=== PATIENT | female | born 2000 | race Caucasian/White ===

== ENCOUNTER 2019-06-17 19:07 | Emergency (ER) | payer BC ==
[~2019-06-17] VITALS: Ht 167.6 cm; Wt 113.4 kg
[2019-06-17] MEDS ORDERED: HYDROCODON-ACE1 EAC8 PO (19:56)
[2019-06-17] MEDS ORDERED: MOTION RELIEF25 MG PO (19:56)
[2019-06-17] MEDS ORDERED: ZOFRAN ODT4 MG PO (19:56)
[2019-06-17] MEDS ORDERED: AMOXICILLIN875 MG PO (19:56)
[2019-06-17] MEDS ORDERED: MEDROLDOSEPACK PO (19:56)
[2019-06-17 20:26] VITALS: BP 126/98
== END 2019-06-17 20:26 | disposition home or self-care (01) ==
LOC: M.ERS 19:07
DX: H92.01 Otalgia, right ear (principal); Z88.6 Allergy status to analgesic agent; Z88.1 Allergy status to other antibiotic agents; Z88.8 Allergy status to other drugs, medicaments and biological substances; Z90.49 Acquired absence of other specified parts of digestive tract

== ENCOUNTER 2019-07-14 20:31 | Emergency (ER) | payer BC ==
[~2019-07-14] VITALS: Ht 167.6 cm; Wt 113.4 kg
[~2019-07-14 20:31] MED LIST: AMOXICILLIN875 MG PO; HYDROCODON-ACE1 EAC8 PO; MEDROLDOSEPACK PO; MOTION RELIEF25 MG PO; ZOFRAN ODT4 MG PO
[2019-07-14] MEDS ORDERED: Magic Mouthwash SWISH&SPIT (23:01)
[2019-07-14 23:13] VITALS: BP 122/70
== END 2019-07-14 23:15 | disposition home or self-care (01) ==
LOC: M.ERS 20:31
DX: J06.9 Acute upper respiratory infection, unspecified (principal); Z88.1 Allergy status to other antibiotic agents; Z88.8 Allergy status to other drugs, medicaments and biological substances; Z90.49 Acquired absence of other specified parts of digestive tract

== ENCOUNTER 2020-02-26 01:19 | Emergency (ER) | payer OTHER ==
[~2020-02-26] VITALS: Ht 167.6 cm; Wt 113.4 kg
[~2020-02-26 01:19] MED LIST changes: +Magic Mouthwash SWISH&SPIT
[2020-02-26 01:21] VITALS: BP 137/96
[2020-02-26] MEDS ORDERED: HYDROXYZINE PAM25 M1 PO (01:26)
[2020-02-26] MEDS ORDERED: ENBRACE HR SOF1 EACH PO (01:27)
[2020-02-26] MEDS ORDERED: METFORMIN HCL500 M3 PO (01:27)
[2020-02-26] MEDS ORDERED: VITAMIN C500 M1 PO (01:27)
[2020-02-26] MEDS ORDERED: B12 ACTIVE1000 MCG PO (01:27)
--- NOTE | 2020-02-27 11:04 | EKG ---
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
== END 2020-02-26 02:07 | disposition home or self-care (01) ==
LOC: M.ERS 01:19
DX: F41.0 Panic disorder [episodic paroxysmal anxiety] (principal); F41.9 Anxiety disorder, unspecified; Z90.49 Acquired absence of other specified parts of digestive tract; Z88.1 Allergy status to other antibiotic agents; Z88.8 Allergy status to other drugs, medicaments and biological substances

== ENCOUNTER 2020-08-25 18:45 | Emergency (ER) | payer OTHER ==
[~2020-08-25] VITALS: Ht 167.6 cm; Wt 96.2 kg
[~2020-08-25 18:45] MED LIST changes: +B12 ACTIVE1000 MCG PO; +ENBRACE HR SOF1 EACH PO; +HYDROXYZINE PAM25 M1 PO; +METFORMIN HCL1000 M2 PO; +VITAMIN C500 M1 PO
[2020-08-25] MEDS ORDERED: LEXAPRO20 MG PO (19:11)
[2020-08-25 19:59] LABS: HEMATOCRIT 40.7 % (37.0-47.0); HEMOGLOBIN 13.7 gm/dL (12.0-15.0); MCH 28.3 pg (26.0-34.0); MCHC 33.6 g/dL (28.0-37.0); MCV 84.2 fL (80.0-100.0); MPV 6.8 fl. (7.2-11.1); RBC 4.84 mil/uL (4.20-5.00); RDW-CV 13.2 % (10.5-14.5); WBC 9.6 thou/uL (4.0-11.0)
[2020-08-25 20:10] LABS: CALCIUM 9.6 mg/dL (8.5-10.1); CREATININE 0.8 mg/dL (0.6-1.3)
[2020-08-25 20:15] LABS: ALBUMIN 3.8 g/dL (3.4-5.0); TOTAL PROTEIN 7.8 g/dL (6.4-8.2)
[2020-08-25 20:35] LABS: URINE BILIRUBIN NEGATIVE (Negative); URINE BLOOD NEGATIVE (Negative); URINE CLARITY CLEAR; URINE COLOR YELLOW; URINE GLUCOSE-RANDOM NEGATIVE (Negative); URINE KETONES NEGATIVE (Negative); URINE LEUKOCYTES-REFLEX NEGATIVE (Negative); URINE NITRITE-REFLEX NEGATIVE (Negative); URINE PROTEIN NEGATIVE (Negative); URINE UROBILINOGEN 0.2 E.U./dl (0.2-1.0)
[2020-08-25] MEDS ORDERED: ZOFRAN ODT4 MG PO (20:56)
[2020-08-25 21:10] VITALS: BP 151/71
== END 2020-08-25 21:11 | disposition home or self-care (01) ==
LOC: M.ERS 18:45
PROVIDERS: Personal Emergency Response Attendant
DX: A08.4 Viral intestinal infection, unspecified (principal); Z20.828 Contact with and (suspected) exposure to other viral communicable diseases; J45.909 Unspecified asthma, uncomplicated; Z88.1 Allergy status to other antibiotic agents; Z88.8 Allergy status to other drugs, medicaments and biological substances; Z90.49 Acquired absence of other specified parts of digestive tract; Z79.899 Other long term (current) drug therapy

== ENCOUNTER 2021-02-18 15:09 | Emergency (ER) | payer OTHER ==
[~2021-02-18] VITALS: Ht 167.6 cm; Wt 111.1 kg
[~2021-02-18 15:09] MED LIST changes: +LEXAPRO20 MG PO
[2021-02-18] MEDS ORDERED: LORATIDINE 10 M10 M1 PO (15:29)
[2021-02-18] MEDS ORDERED: NAPROSYN500 MG PO (16:46)
[2021-02-18 17:00] VITALS: BP 122/68
== END 2021-02-18 17:01 | disposition home or self-care (01) ==
LOC: M.ERS 15:09
DX: S83.8X2A Sprain of other specified parts of left knee, initial encounter (principal); J45.909 Unspecified asthma, uncomplicated; K58.9 Irritable bowel syndrome, unspecified; Z90.49 Acquired absence of other specified parts of digestive tract; Z88.6 Allergy status to analgesic agent; Z88.1 Allergy status to other antibiotic agents; Z88.8 Allergy status to other drugs, medicaments and biological substances; W22.8XXA Striking against or struck by other objects, initial encounter; Y93.89 Activity, other specified; Y92.89 Other specified places as the place of occurrence of the external cause; Y99.8 Other external cause status

== ENCOUNTER 2021-07-31 15:41 | Emergency (ER) | payer OTHER ==
[~2021-07-31] VITALS: Ht 165.1 cm; Wt 111.1 kg
[~2021-07-31 15:41] MED LIST changes: +LORATIDINE 10 M10 M1 PO; +NAPROSYN500 MG PO
[2021-07-31 16:02] VITALS: BP 146/88
[2021-07-31] MEDS ORDERED: AMOXICILLIN 50500 MG PO (16:05)
[2021-08-01] MEDS ORDERED: LORAZEPAM 0.50.5 MG PO (10:17)
[2021-08-01] MEDS ORDERED: BUSPIRONE HCL10 MG PO (10:18)
== END 2021-07-31 17:30 | disposition left against medical advice (07) ==
LOC: M.ERS 15:41
DX: H92.01 Otalgia, right ear (principal); Z53.21 Procedure and treatment not carried out due to patient leaving prior to being seen by health care provider

== ENCOUNTER 2021-08-01 10:00 | Emergency (ER) | payer OTHER ==
[~2021-08-01] VITALS: Ht 165.1 cm; Wt 111.1 kg
[~2021-08-01 10:00] MED LIST changes: +AMOXICILLIN 50500 MG PO
[2021-08-01 10:14] VITALS: BP 143/89
[2021-08-01] MEDS ORDERED: LORAZEPAM 0.50.5 MG PO (10:17)
[2021-08-01] MEDS ORDERED: BUSPIRONE HCL10 MG PO (10:18)
[2021-08-02] MEDS ORDERED: AUGMENTIN 875-1 EACH PO (04:35)
[2021-08-02] MEDS ORDERED: CIPRODEX OTIC7.5 ML OTIC (04:35)
[2021-08-02] MEDS ORDERED: IBUPROFEN 800800 MG PO (04:35)
[2021-08-02] MEDS ORDERED: ACETAMINOPHEN-1 EAC2 PO (04:35)
== END 2021-08-01 11:27 | disposition left against medical advice (07) ==
LOC: M.ERS 10:00
DX: H91.90 Unspecified hearing loss, unspecified ear (principal); Z53.21 Procedure and treatment not carried out due to patient leaving prior to being seen by health care provider

== ENCOUNTER 2021-08-02 03:46 | Emergency (ER) | payer OTHER ==
[~2021-08-02] VITALS: Ht 165.1 cm; Wt 108.9 kg
[~2021-08-02 03:46] MED LIST changes: +BUSPIRONE HCL10 MG PO; +LORAZEPAM 0.50.5 MG PO
[2021-08-02 04:01] VITALS: BP 130/70
[2021-08-02] MEDS ORDERED: IBUPROFEN 800800 MG PO (04:35)
[2021-08-02] MEDS ORDERED: ACETAMINOPHEN-1 EAC2 PO (04:35)
[2021-08-02] MEDS ORDERED: CIPRODEX OTIC7.5 ML OTIC (04:35)
[2021-08-02] MEDS ORDERED: AUGMENTIN 875-1 EACH PO (04:35)
== END 2021-08-02 04:48 | disposition home or self-care (01) ==
LOC: M.ERS 03:46
DX: H66.92 Otitis media, unspecified, left ear (principal); H60.92 Unspecified otitis externa, left ear; F41.9 Anxiety disorder, unspecified; J45.909 Unspecified asthma, uncomplicated; Z79.899 Other long term (current) drug therapy; Z90.49 Acquired absence of other specified parts of digestive tract; Z88.1 Allergy status to other antibiotic agents; Z88.8 Allergy status to other drugs, medicaments and biological substances